=== PATIENT | female | born 1960 | race Caucasian/White ===

== ENCOUNTER 2021-09-09 15:32 | Inpatient (IN) | payer MEDICARE ==
[~2021-09-09] VITALS: Ht 175.3 cm; Wt 134.9 kg
[2021-09-09 20:42] LABS: BASOPHIL 0.2 % (0-2); EOSINOPHIL 0.1 % (0-5); HCT 39.7 % (37.0-47.0); HGB 13.7 g/dl (12.5-16.0); LYMPHOCYTE 13.5 % (15-48); MCH 31.3 pg (25.0-31.0); MCHC 34.5 g/dL (32.0-36.0); MCV 90.6 fL (78.0-100.0); MONOCYTE 7.6 % (0-12); MPV 12.6 fL (6.0-9.5); NEUTROPHIL 77.8 % (41-80); NRBC 0; PLT 147 K/uL (150-400); RBC 4.38 M/uL (4.20-5.40); RDW 12.1 % (11.5-14.0); WBC 9.3 K/uL (4.0-10.5)
[2021-09-09 21:00] LABS: ALBUMIN 3.6 g/dL (3.4-5.0); BILIRUBIN - TOTAL 0.8 mg/dL (0.2-1.0); BUN/CREAT RATIO (CALC) 18.4 RATIO; CREATININE 2.94 mg/dL (0.51-0.95); GLOBULIN (CALCULATION) 4.5 g/dL; MAGNESIUM 1.9 mg/dL (1.8-2.4); POTASSIUM 2.6 mmol/L (3.5-5.1); TOTAL PROTEIN 8.1 g/dL (6.4-8.2)
[2021-09-09 21:17] LABS: INFLUENZA A NAA NEGATIVE (NEGATIVE)
[2021-09-09 21:18] LABS: CORONAVIRUS 2019 SARS-COV-2 POSITIVE (NEGATIVE)
[2021-09-10 03:27] LABS: BUN 49 mg/dL (7-18); BUN/CREAT RATIO (CALC) 19.2 RATIO; CHLORIDE 98 mmol/L (98-107); CO2 (BICARBONATE) 22 mmol/L (21-32); CREATININE 2.55 mg/dL (0.51-0.95); GLUCOSE 83 mg/dL (74-106); POTASSIUM 2.9 mmol/L (3.5-5.1)
[2021-09-10 04:19] LABS: PHOSPHORUS 7.9 mg/dL (2.6-4.7); VITAMIN D (25-OH) 8.5 ng/mL (30.0-100.0)
[2021-09-10 09:42] LABS: CREATININE 2.3 mg/dL (0.51-0.95)
[2021-09-10 09:43] LABS: POTASSIUM 3.2 mmol/L (3.5-5.1)
[2021-09-10 09:45] LABS: PHOSPHORUS 8.1 mg/dL (2.6-4.7)
[2021-09-10 13:11] LABS: C-REACTIVE PROTEIN 3.5 mg/dL (<=0.90)
[2021-09-10 14:41] LABS: FT4 (FREE T4) 1.7 ng/dL (0.76-1.46)
[2021-09-11 06:45] LABS: BASOPHIL 0 % (0-2); EOSINOPHIL 0 % (0-5); HCT 34.8 % (37.0-47.0); HGB 11.9 g/dl (12.5-16.0); LYMPHOCYTE 10.6 % (15-48); MCH 31.3 pg (25.0-31.0); MCHC 34.2 g/dL (32.0-36.0); MCV 91.6 fL (78.0-100.0); MONOCYTE 3.5 % (0-12); MPV 10.8 fL (6.0-9.5); NEUTROPHIL 85.2 % (41-80); NRBC 0; PLT 184 K/uL (150-400); RDW 12.1 % (11.5-14.0); WBC 5.5 K/uL (4.0-10.5)
[2021-09-11 07:19] LABS: BILIRUBIN - TOTAL 0.5 mg/dL (0.2-1.0); BUN/CREAT RATIO (CALC) 26.2 RATIO; CREATININE 1.45 mg/dL (0.51-0.95); POTASSIUM 3.4 mmol/L (3.5-5.1)
[2021-09-12 04:43] LABS: BASOPHIL 0 % (0-2); EOSINOPHIL 0.2 % (0-5); HCT 32.1 % (37.0-47.0); HGB 10.8 g/dl (12.5-16.0); LYMPHOCYTE 16.2 % (15-48); MCH 31.4 pg (25.0-31.0); MCHC 33.6 g/dL (32.0-36.0); MCV 93.3 fL (78.0-100.0); MONOCYTE 8.3 % (0-12); NEUTROPHIL 74.3 % (41-80); NRBC 0; PLT 199 K/uL (150-400); RBC 3.44 M/uL (4.20-5.40); RDW 12.2 % (11.5-14.0); WBC 6.2 K/uL (4.0-10.5)
[2021-09-12 05:39] LABS: ALBUMIN 2.9 g/dL (3.4-5.0); BILIRUBIN - TOTAL 0.4 mg/dL (0.2-1.0); CREATININE 1.12 mg/dL (0.51-0.95); GLOBULIN (CALCULATION) 3.7 g/dL; POTASSIUM 3.2 mmol/L (3.5-5.1); TOTAL PROTEIN 6.6 g/dL (6.4-8.2)
--- NOTE | 2021-09-12 07:22 | NUR ---
CRITICAL LAB - Ca 5.8
[2021-09-12 11:08] LABS: CALCIUM, SERUM 5.9 mg/dL (8.7-10.3); PTH, INTACT 12 pg/mL (15-65)
[2021-09-12 15:20] LABS: BUN/CREAT RATIO (CALC) 24.7 RATIO; CREATININE 0.97 mg/dL (0.51-0.95); POTASSIUM 3.2 mmol/L (3.5-5.1)
[2021-09-13 10:39] LABS: BUN/CREAT RATIO (CALC) 24.7 RATIO; CREATININE 0.81 mg/dL (0.51-0.95)
[2021-09-14 05:03] LABS: HCT 33.8 % (37.0-47.0); HGB 11.1 g/dl (12.5-16.0); MCH 31.5 pg (25.0-31.0); MCHC 32.8 g/dL (32.0-36.0); MPV 10.1 fL (6.0-9.5); RBC 3.52 M/uL (4.20-5.40); RDW 12.6 % (11.5-14.0); WBC 6.2 K/uL (4.0-10.5)
[2021-09-14 05:27] LABS: BUN/CREAT RATIO (CALC) 17.5 RATIO; CREATININE 0.8 mg/dL (0.51-0.95)
[2021-09-15 05:56] LABS: HCT 35.1 % (37.0-47.0); HGB 11.5 g/dl (12.5-16.0); MCH 31.5 pg (25.0-31.0); MCHC 32.8 g/dL (32.0-36.0); MCV 96.2 fL (78.0-100.0); MPV 12.7 fL (6.0-9.5); RBC 3.65 M/uL (4.20-5.40); RDW 12.4 % (11.5-14.0); WBC 6.2 K/uL (4.0-10.5)
[2021-09-15 06:16] LABS: BUN/CREAT RATIO (CALC) 16.9 RATIO; CREATININE 0.83 mg/dL (0.51-0.95); POTASSIUM 4.3 mmol/L (3.5-5.1)
[2021-09-15 16:09] LABS: CALCIUM, SERUM 5.4 mg/dL (8.7-10.3); PTH, INTACT 14 pg/mL (15-65)
[2021-09-16 13:04] LABS: BASOPHIL 0.4 % (0-2); EOSINOPHIL 1.1 % (0-5); HCT 34.8 % (37.0-47.0); HGB 11.4 g/dl (12.5-16.0); LYMPHOCYTE 25.6 % (15-48); MCHC 32.8 g/dL (32.0-36.0); MCV 97.8 fL (78.0-100.0); MONOCYTE 6.9 % (0-12); MPV 12.6 fL (6.0-9.5); NEUTROPHIL 65.5 % (41-80); NRBC 0; PLT 133 K/uL (150-400); RBC 3.56 M/uL (4.20-5.40); RDW 12.7 % (11.5-14.0); WBC 5.6 K/uL (4.0-10.5)
[2021-09-16 13:37] LABS: ALBUMIN 2.9 g/dL (3.4-5.0); BILIRUBIN - TOTAL 0.4 mg/dL (0.2-1.0); BUN/CREAT RATIO (CALC) 17.1 RATIO; CREATININE 0.7 mg/dL (0.51-0.95); GLOBULIN (CALCULATION) 3.8 g/dL; POTASSIUM 4.4 mmol/L (3.5-5.1); TOTAL PROTEIN 6.7 g/dL (6.4-8.2)
[2021-09-17 06:56] LABS: BASOPHIL 0.2 % (0-2); EOSINOPHIL 1.7 % (0-5); HCT 34.8 % (37.0-47.0); HGB 11.4 g/dl (12.5-16.0); LYMPHOCYTE 28.3 % (15-48); MCH 31.8 pg (25.0-31.0); MCHC 32.8 g/dL (32.0-36.0); MCV 97.2 fL (78.0-100.0); MONOCYTE 9.8 % (0-12); MPV 11.8 fL (6.0-9.5); NEUTROPHIL 59.5 % (41-80); NRBC 0; PLT 158 K/uL (150-400); RBC 3.58 M/uL (4.20-5.40); RDW 12.6 % (11.5-14.0)
[2021-09-17 06:57] LABS: INR 1.13 (0.9-1.2); PROTHROMBIN TIME 13.9 SECONDS (11.8-13.4)
[2021-09-17 07:13] LABS: BILIRUBIN - TOTAL 0.6 mg/dL (0.2-1.0); BUN/CREAT RATIO (CALC) 16.9 RATIO; CREATININE 0.77 mg/dL (0.51-0.95); GLOBULIN (CALCULATION) 3.7 g/dL; PHOSPHORUS 5.8 mg/dL (2.6-4.7); TOTAL PROTEIN 6.7 g/dL (6.4-8.2)
[2021-09-17] MEDS ORDERED: CALCIUM ANTACI200 MG PO (10:25)
[2021-09-17] MEDS ORDERED: SYNTHROID100 MCG PO (10:25)
[2021-09-17] MEDS ORDERED: CALCITRIOL0.25 MCG PO (10:25)
--- NOTE | 2021-09-17 14:56 | NUR ---
TC TO PT ROOM SHE IS INSOLATION. SHE WOULD LIKE HER ROLLING WALKER TO COME FROM [facility] AND DELIVERED TO HER HOME. FAXED REFERRAL TO MEGHNA AT [facility].
== END 2021-09-17 13:43 | disposition home or self-care (01) | DRG 643 ==
LOC: FER 15:32 → FOFB 09-10 14:16 → FTCU 09-10 14:16 → FMS 09-16 14:46
PROVIDERS: Emergency Medicine; Family Medicine; Hospitalist; Internal Medicine; Nurse Practitioner; ADMIT Internal Medicine
PROC: XW033G6 Introduction of REGN-COV2 Monoclonal Antibody into Peripheral Vein, Percutaneous Approach, New Technology Group 6 (ICD-10-PCS; principal; 2021-09-09)
PROC: 8E0ZXY6 Isolation (ICD-10-PCS; 2021-09-10)
DX: E89.2 Postprocedural hypoparathyroidism (principal); U07.1 COVID-19; J12.82 Pneumonia due to coronavirus disease 2019; N17.9 Acute kidney failure, unspecified; Z68.41 Body mass index [BMI] 40.0-44.9, adult; E83.81 Hungry bone syndrome; N63.20 Unspecified lump in the left breast, unspecified quadrant; N28.89 Other specified disorders of kidney and ureter; E87.6 Hypokalemia; I10 Essential (primary) hypertension; E86.0 Dehydration; E89.0 Postprocedural hypothyroidism; E66.01 Morbid (severe) obesity due to excess calories; E83.39 Other disorders of phosphorus metabolism; R74.01 Elevation of levels of liver transaminase levels; D64.9 Anemia, unspecified; Z90.49 Acquired absence of other specified parts of digestive tract; Z90.710 Acquired absence of both cervix and uterus; Z79.899 Other long term (current) drug therapy; Z79.890 Hormone replacement therapy
CPT/HCPCS: 36415; 71045; 71250; 80048; 80053; 82306; 82310; 82330; 82652; 82728; 83615; 83735; 83970; 84100; 84145; 84439; 84443; 85025; 85610; 86140; 90686; 93005; 94640; 97162; 97166; 97530-GP; 97535; G0008; J0610; J1100; J1650; J3475; J3480; J7030; J7120; M0243; Q0244; U0002

== ENCOUNTER → 2021-11-03 | Day surgery (SDC) | payer MEDICARE ==
[~2021-11-03] VITALS: Ht 175.3 cm; Wt 133.1 kg
[~2021-11-03] MED LIST: ACETAMINOPHEN500 M1 PO; CALCITRIOL0.25 MCG PO; CALCIUM ANTACI200 MG PO; COLACE100 MG PO; COZAAR50 MG PO; HCTZ25 MG PO; MOBIC7.5 MG PO; OXY-IR 5MG5 MG PO; SYNTHROID100 MCG PO
[2021-11-03 10:59] LABS: BUN/CREAT RATIO (CALC) 20.3 RATIO; CREATININE 0.79 mg/dL (0.51-0.95); POTASSIUM 3.8 mmol/L (3.5-5.1)
== END | disposition home or self-care (01) ==
LOC: FAS 09:03
PROVIDERS: Anesthesiology
DX: C50.412 Malignant neoplasm of upper-outer quadrant of left female breast (principal); K21.9 Gastro-esophageal reflux disease without esophagitis; E89.0 Postprocedural hypothyroidism; N28.89 Other specified disorders of kidney and ureter; I10 Essential (primary) hypertension; M19.90 Unspecified osteoarthritis, unspecified site; E66.9 Obesity, unspecified; Z68.41 Body mass index [BMI] 40.0-44.9, adult; Z17.0 Estrogen receptor positive status [ER+]; Z86.16 Personal history of COVID-19; Z79.1 Long term (current) use of non-steroidal anti-inflammatories (NSAID); Z79.899 Other long term (current) drug therapy
CPT/HCPCS: 36415; 80048; J0690; J1100; J1644; J1885; J2250; J2405; J2704; J3010; J7120; Q9968

== ENCOUNTER 2021-11-24 19:27 | Emergency (ER) | payer MEDICARE | END 2021-11-24 20:30 | disposition home or self-care (01) | LOC: FER 19:27 | DX: T81.30XA Disruption of wound, unspecified, initial encounter (principal); I10 Essential (primary) hypertension | CPT/HCPCS: 99283 ==

== ENCOUNTER 2021-11-27 18:41 | Emergency (ER) | payer MEDICARE | END 2021-11-27 19:53 | disposition home or self-care (01) | LOC: FER 18:41 | DX: N64.89 Other specified disorders of breast (principal); I10 Essential (primary) hypertension; Z98.890 Other specified postprocedural states | CPT/HCPCS: 99283 ==